=== PATIENT | female | born 1965 | race American Indian/Alaskan Native ===

== ENCOUNTER 2020-02-16 07:04 | Emergency (ER) | payer MEDICARE ==
[2020-02-16 07:17] VITALS: BP 108/73
--- NOTE | 2020-02-16 08:08 | Emergency Department Report ---
Chief Complaint: Sore Throat Stated Complaint: HEADACHE, SHORT OF BREATH Time Seen by Provider: 02/16/20 08:02 - HPI History of Present Illness: 54-year-old well-nourished nontoxic -[place] female presents to the emergency room for very vague symptoms. Patient states that she has intermittent headache for 3 days that responds to Aleve last dose was last night. She also reports that she has pain to her glands on the left side of her neck that responds to Aleve. She reports shortness of breath and reports she has a history of HIV. Patient denies any fever chills no sweats no nausea no vomiting no chest pain no dysuria no abdominal pain no vaginal bleeding vaginal discharge. She does admit to intermittent cough that she states that is due to her smoking but she quit 2 months ago. Patient elicits to me that she has been out of her HIV medicine for about 5 days. She also reports that she had a history of drug use. She reports she has a primary care doctor Dr. Alcantara at [facility]. - Exam Vital Signs: Vital Signs 02/16/20 07:11 Temperature 97.8 F Pulse Rate 61 Respiratory 14 Rate Blood Pressure 108/73 O2 Sat by Pulse 96 Oximetry Physical Exam: Gen: alert oriented NAD HEENT NT: Oral mucosa is moist throat is patent nonerythematous no edematous no exudate appreciated no lymphadenopathy appreciated Cardic: regular rate and rhythm no murmurs appreciated Resp: Clear to auscultation bilateral no wheezing no rales or rhonchi. Abdomen: Soft nontender nondistended normal bowel sounds. Mini neuro: Normal finger to nose exam, [id number] normal, Romberg neg, strengh 4/5 all extrimities, Alert and oriented time 3 Crainal nerve II-IIX intact MSE screening note: Focused history and physical exam performed. Due to findings the following was ordered: 54-year-old well-nourished nontoxic -[place] female presents to the emergency room for very vague symptoms. Patient states that she has intermittent headache for 3 days that responds to Aleve last dose was last night. She also reports that she has pain to her glands on the left side of her neck that responds to Aleve. She reports shortness of breath and reports she has a history of HIV. Patient denies any fever chills no sweats no nausea no vomiting no chest pain no dysuria no abdominal pain no vaginal bleeding vaginal discharge. She does admit to intermittent cough that she states that is due to her smoking but she quit 2 months ago. Patient elicits to me that she has been out of her HIV medicine for about 5 days. She also reports that she had a history of drug use. She reports she has a primary care doctor Dr. Alcantara at [facility]. She reports she has a history of allergies and takes multitude of medications for her allergies. I discussed with patient that her vital signs are stable she does not appear to have any signs of infection she is nontoxic she is moving air well throat is clear recommended patient continues of all medications and to follow-up with her primary care provider Dr. Alcantara at [facility]. Patient verbalized understanding ED Disposition for MSE Clinical Impression: Headache Disposition: Z- MED SCREENING EXAM-LEFT Is pt being admited?: No Does the pt Need Aspirin: No Condition: Stable Additional Instructions: I discussed with patient that her vital signs are stable she does not appear to have any signs of infection she is nontoxic she is moving air well throat is clear recommended patient continues of all medications and to follow-up with her primary care provider Dr. Alcantara at [facility]. Patient verbalized understanding Referrals: ARACELI ALMENDAREZ MD [Referring] - 3-5 Days
== END 2020-02-16 08:18 | disposition left against medical advice (07) ==
LOC: ED 07:04
DX: R51 Headache (principal); M54.2 Cervicalgia; R06.02 Shortness of breath; R05 Cough; I10 Essential (primary) hypertension; Z21 Asymptomatic human immunodeficiency virus [HIV] infection status; Z90.710 Acquired absence of both cervix and uterus
CPT/HCPCS: 99281